=== PATIENT | female | born 1985 | race Caucasian/White ===

== ENCOUNTER → 2018-10-20 | Outpatient (REF) | payer OTHER | LOC: M SFHCLERA 16:57 | PROVIDERS: ATTEND Nurse Practitioner Family | DX: J02.9 Acute pharyngitis, unspecified (principal) ==

== ENCOUNTER 2019-12-05 10:55 | Emergency (ER) | payer OTHER ==
[~2019-12-05] VITALS: Ht 175.3 cm; Wt 85.5 kg
[2019-12-05] MEDS ORDERED: PROAAER10 INH (11:29)
[2019-12-05] MEDS ORDERED: ABIL1TAB11 PO (11:29)
[2019-12-05] MEDS ORDERED: RALT40TA PO (11:29)
[2019-12-05] MEDS ORDERED: OMEP-218 PO (11:29)
[2019-12-05] MEDS ORDERED: BUPR15TASR PO (11:29)
[2019-12-05] MEDS ORDERED: DIVA500T9 PO (11:29)
[2019-12-05] MEDS ORDERED: TRUVTAB PO (11:29)
[2019-12-05 11:57] LABS: BASO % 0.3 % (0.0-1.0); EOS # 0.2 10^3/uL (0.0-0.5); EOS % 1.4 % (0.0-3.0); HEMATOCRIT 44.1 % (36.0-47.0); LYMPH # 2.4 10^3/uL (1.5-5.0); LYMPH % 20.1 % (24.0-44.0); MEAN CORPUSCULAR HEMOGLOBIN 31.8 pg (27.0-33.0); MEAN CORPUSCULAR VOLUME 93.6 fl (80.0-96.0); MONO # 0.6 10^3/uL (0.0-0.8); NEUTROPHILS # 8.6 10^3/uL (1.5-8.5); NEUTROPHILS % 72.9 % (36.0-66.0); PLATELET COUNT, AUTOMATED 265 10^3/uL (150-450); RED BLOOD COUNT 4.71 10^6/uL (4.00-5.40); WHITE BLOOD COUNT 11.8 10^3/uL (4.0-10.0)
--- NOTE | 2019-12-05 12:07 | REP ---
Portable chest x-ray: Two views presented. History: Chest pain. Comparison chest x-ray December 22, 2012. Findings: The lungs are symmetrically aerated and clear. Pleural angles are sharp. Heart size is normal. Pulmonary vasculature is not increased. Monitoring electrodes are seen. Impression: Negative chest x-ray. Electronically Signed by Beni Gamble MD 12/05/2019 11:57 A
[2019-12-05 13:45] VITALS: BP 114/69
--- NOTE | 2019-12-05 21:21 | ECGEPIP ---
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
== END 2019-12-05 14:09 | disposition home or self-care (01) ==
LOC: M ED 10:55
DX: F41.8 Other specified anxiety disorders (principal); F43.0 Acute stress reaction; I45.19 Other right bundle-branch block; J45.909 Unspecified asthma, uncomplicated; Z79.899 Other long term (current) drug therapy

== ENCOUNTER 2021-03-01 09:55 | Emergency (ER) | payer OTHER, SELFPAY ==
[~2021-03-01] VITALS: Ht 175.3 cm; Wt 84.9 kg
[~2021-03-01 09:55] MED LIST: ABIL1TAB11 PO; BUPR15TASR PO; DIVA500T9 PO; EMTR1TAB16 PO; OMEP-218 PO; PROAAER10 INH; RALT40TA PO
[2021-03-01 09:56] VITALS: BP 147/86
[2021-03-01] MEDS ORDERED: NS 1,000 ML IV ONE (12:30)
[2021-03-01] MEDS ORDERED: ONDANSETRON 4MG/2ML VIAL IV ONE (12:30)
[2021-03-01 13:08] LABS: BASO # 0.1 10^3/uL (0.0-0.2); BASO % 0.4 % (0.0-1.0); EOS # 0.2 10^3/uL (0.0-0.5); EOS % 1.4 % (0.0-3.0); HEMATOCRIT 45.2 % (36.0-47.0); HEMOGLOBIN 15.3 g/dl (12.0-15.5); LYMPH # 3.2 10^3/uL (1.5-5.0); LYMPH % 27.3 % (24.0-44.0); MEAN CORPUSCULAR HEMOGLOBIN 32.7 pg (27.0-33.0); MEAN CORPUSCULAR HGB CONC 33.8 g/dl (32.0-36.5); MEAN CORPUSCULAR VOLUME 96.6 fl (80.0-96.0); MONO # 0.6 10^3/uL (0.0-0.8); MONO % 5.3 % (2.0-8.0); NEUTROPHILS # 7.5 10^3/uL (1.5-8.5); NEUTROPHILS % 65.3 % (36.0-66.0); PLATELET COUNT, AUTOMATED 313 10^3/uL (150-450); RED BLOOD COUNT 4.68 10^6/uL (4.00-5.40); WHITE BLOOD COUNT 11.5 10^3/uL (4.0-10.0)
[2021-03-01 13:42] LABS: BLOOD UREA NITROGEN 8 MG/DL (7-18); CALCIUM LEVEL 9.1 MG/DL (8.5-10.1); CARBON DIOXIDE LEVEL 27 MEQ/L (21-32); CHLORIDE LEVEL 108 MEQ/L (98-107); CREATININE FOR GFR 0.59 MG/DL (0.55-1.30); GLOMERULAR FILTRATION RATE > 60.0 (>60); GLUCOSE, FASTING 77 MG/DL (70-100); SODIUM LEVEL 139 MEQ/L (136-145)
--- NOTE | 2021-03-01 13:53 | REP ---
INDICATION: cough, fever r/o covid pneumonia. COMPARISON: 12/05/2019 also portable TECHNIQUE: Portable FINDINGS: The technique utilized in obtaining the radiograph has magnified the cardiac silhouette and accentuated the interstitial markings. The superior mediastinal structures are midline. The cardiac silhouette is unremarkable in size, shape, and position. The diaphragmatic surfaces of the lungs are regular, and the costophrenic angles are clear. The pulmonary parekh are clear. The imaged osseous structures are intact. IMPRESSION: There is no acute cardiopulmonary disease. <Electronically signed by Xu Quezada > 03/01/21 [id number]
[2021-03-01 14:52] LABS: RSV AMPLIFICATION NEGATIVE (NEGATIVE)
[2021-03-01] MEDS ORDERED: KETOROLAC 30 MG/ML 1ML VIAL IV ONE (15:00)
== END 2021-03-01 15:10 | disposition home or self-care (01) ==
LOC: M ED 09:55
DX: J06.9 Acute upper respiratory infection, unspecified (principal); B34.9 Viral infection, unspecified
CPT/HCPCS: 71045; 80048; 84702; 85025; 87631; 96361; 96374; 96375; 99283; J1885; J2405